=== PATIENT | male | born 1950 | race Caucasian/White ===

== ENCOUNTER 2018-08-01 13:51 | Emergency (ER) | payer BC, MEDICARE ==
[2018-08-01] MEDS ORDERED: IPRATROPIUM/ALBUTEROL 0.5-2.5 MG/3 ML AMPUL NEB ONE (14:12)
--- NOTE | 2018-08-01 14:13 | ER Document Report ---
ED Medical Screen (RME) - General Chief Complaint: Breathing Difficulty Stated Complaint: TROUBLE BREATHING, SHOULDER/NECK PAIN Time Seen by Provider: 08/01/18 14:11 TRAVEL OUTSIDE OF THE [place] IN LAST 30 DAYS: No - HPI Notes: 08/01/18 14:12 Patient is a 68-year-old male that presents to the emergency department for chief complaint of shortness of breath. Patient has had increased dyspnea for the last week. He reports a nonproductive cough now but states it was productive a few days ago. He denies history of COPD or lung disease. He does state that he has a harder time breathing when he is lying flat and sitting up. He reports an aching in his shoulders and neck that coincides with the shortness of breath.. ROS: GENERAL: Denies fever of chills CV: Denies chest pain PHYSICAL EXAMINATION: GENERAL: Well-appearing, well-nourished and in no acute distress. HEAD: Atraumatic, normocephalic. EYES: Pupils equal round extraocular movements intact, conjunctiva are normal. ENT: Nares patent NECK: Normal range of motion LUNGS: Diffuse wheezing, no respiratory distress Musculoskeletal: Normal range of motion NEUROLOGICAL: Normal speech, normal gait. PSYCH: Normal mood, normal affect. MDM: Patient seen and examined for rapid initial assessment. Vital signs reviewed. A comprehensive ED assessment and evaluation of the patient, analysis of test results and completion of the medical decision making process will be conducted by additional ED providers. - Related Data Allergies/Adverse Reactions: No Known Allergies Allergy (Unverified 08/01/18 13:51) Physical Exam - Vital signs Vitals: Temp Pulse Resp BP Pulse Ox 97.5 F 102 H 27 H 177/110 H 92 08/01/18 13:56 08/01/18 13:56 08/01/18 13:56 08/01/18 13:56 08/01/18 13:56 Course - Vital Signs Vital signs: Temp Pulse Resp BP Pulse Ox 97.5 F 102 H 27 H 177/110 H 92 08/01/18 13:56 08/01/18 13:56 08/01/18 13:56 08/01/18 13:56 08/01/18 13:56 Doctor's Discharge - Discharge Referrals: IRENE DAVENPORT MD [Primary Care Provider] - Follow up as needed
[2018-08-01] MEDS ORDERED: LORAZEPAM 1 MG TABLET PO ONE (14:51)
--- NOTE | 2018-08-01 15:01 | ER Document Report ---
ED General - General Chief Complaint: Breathing Difficulty Stated Complaint: TROUBLE BREATHING, SHOULDER/NECK PAIN Time Seen by Provider: 08/01/18 14:11 TRAVEL OUTSIDE OF THE [place] IN LAST 30 DAYS: No - HPI Notes: Patient is a 68-year-old male that presents to the emergency department for chief complaint of shortness of breath. Patient has had increased dyspnea for the last week. He reports a nonproductive cough now but states it was productive a few days ago. He denies history of COPD or lung disease. He does state that he has a harder time breathing when he is lying flat and sitting up. He reports an aching in his shoulders and neck that coincides with the shortness of breath. He does currently have some aching in his shoulders. He denies any chest pain, palpitations, syncope, nausea, vomiting and diaphoresis. He denies history of stress test or cardiac catheterization in the past. Past Medical History: Negative Past Surgical History: Negative Social History: Denies drugs alcohol and tobacco Family History: Reviewed and noncontributory for presenting illness Allergies: Reviewed, see documented allergy list. REVIEW OF SYSTEMS: CONSTITUTIONAL : No fever No chills No diaphoresis No recent illness EENT: No vision changes No congestion No sore throat CARDIOVASCULAR: No chest pain No palpitations RESPIRATORY: shortness of breath cough difficulty breathing GASTROINTESTINAL: No abdominal pain No nausea No vomiting No diarrhea GENITOURINARY: No dysuria No hematuria No difficulty urinating MUSCULOSKELETAL: Neck pain Upper back pain No leg pain No arm pain SKIN: No rashes No lesions LYMPHATIC: No swollen, enlarged glands. NEUROLOGICAL: No lightheadedness No headache No weakness No paresthesias PSYCHIATRIC: No anxiety No depression PHYSICAL EXAMINATION: Vital signs reviewed, nursing noted reviewed. GENERAL: Well-appearing, well-nourished and in no acute distress. HEAD: Atraumatic, normocephalic. EYES: Eyes appear normal, extraocular movements intact, sclera anicteric, conjunctiva are normal. ENT: nares patent, oropharynx clear without exudates. Moist mucous membranes. NECK: Normal range of motion, supple without lymphadenopathy LUNGS: Bilateral end expiratory wheezing. No accessory muscle use HEART: Regular rate and rhythm without murmurs ABDOMEN: Soft, nontender, normoactive bowel sounds. No rebound, guarding, or rigidity. No masses appreciated. EXTREMITIES: Nontender, good range of motion, no pitting or edema. NEUROLOGICAL: No focal neurological deficits. Moves all extremities spontaneously Motor and sensory grossly intact on exam. PSYCH: Normal mood, normal affect. SKIN: Warm, Dry, normal turgor, no rashes or lesions noted on exposed skin - Related Data Allergies/Adverse Reactions: No Known Allergies Allergy (Unverified 08/01/18 13:51) Past Medical History - Social History Smoking Status: Never Smoker Frequency of alcohol use: Occasional Drug Abuse: None Family History: Reviewed & Not Pertinent Patient has suicidal ideation: No Patient has homicidal ideation: No Renal/ Medical History: Denies: Hx Peritoneal Dialysis Past Surgical History: Reports: Hx Cholecystectomy Review of Systems - Review of Systems Notes: Dictated Physical Exam - Vital signs Vitals: Temp Pulse Resp BP Pulse Ox 97.5 F 102 H 27 H 177/110 H 92 08/01/18 13:56 08/01/18 13:56 08/01/18 13:56 08/01/18 13:56 08/01/18 13:56 - Notes Notes: Dictated Course - Re-evaluation Re-evalutation: 08/01/18 14:59 Vitals reviewed. Nursing notes reviewed. Patient presented in no distress with bilateral wheezing. He was ordered DuoNeb for his shortness of breath and wheezing. EKG revealed a STEMI. Patient was ordered aspirin, Plavix, nitro, heparin, and TNKase. Patient will be transferred to [facility] for cardiac catheterization. Accepting physician Dr. Powell, cardiology. Patient and family in agreement with this plan. He is stable at time of transfer. 08/01/18 16:05 Case was discussed with Dr. Powell who reviewed EKGs and agrees with transfer to cardiac catheterization. Repeat EKG showed worsening ST elevation in lead III and new tachycardia however patient is very anxious currently about being in the helicopter. Troponin is still pending. Patient was stable at time of transfer Laboratory 08/01/18 08/01/18 08/01/18 14:45 14:45 14:45 WBC 12.0 H RBC 5.05 Hgb 15.2 Hct 44.8 MCV 89 MCH 30.2 MCHC 34.0 RDW 13.4 Plt Count 304 Seg Neutrophils % 84.2 H Lymphocytes % 7.6 L Monocytes % 6.0 Eosinophils % 1.4 Basophils % 0.8 Absolute Neutrophils 10.1 H Absolute Lymphocytes 0.9 Absolute Monocytes 0.7 Absolute Eosinophils 0.2 Absolute Basophils 0.1 Sodium Cancelled Potassium Cancelled Chloride Cancelled Carbon Dioxide Cancelled Anion Gap Cancelled BUN Cancelled Creatinine Cancelled Est GFR ( Amer) Cancelled Est GFR (Non-Af Amer) Cancelled Glucose Cancelled Calcium Cancelled Troponin I Cancelled Chest X-Ray 08/01/18 14:11 IMPRESSION: Borderline cardiomegaly. Cannot exclude mild pulmonary edema. Minimal pleural effusions. - Vital Signs Vital signs: Temp Pulse Resp BP Pulse Ox 97.5 F 102 H 25 H 154/100 H 94 08/01/18 13:56 08/01/18 13:56 08/01/18 15:35 08/01/18 15:35 08/01/18 15:35 - Laboratory Result Diagrams: 08/01/18 14:45 08/01/18 14:45 Laboratory results interpreted by me: 08/01/18 14:45 WBC 12.0 H Seg Neutrophils % 84.2 H Lymphocytes % 7.6 L Absolute Neutrophils 10.1 H - EKG Interpretation by Me Additional EKG results interpreted by me: 08/01/18 14:58 Interpreted by myself Normal sinus rhythm, rate 83, STEMI with ST elevation in aVR and V1, ST depression I, V4- V5 08/01/18 16:06 Interpreted by myself Repeat EKG shows increased ST elevation in lead III, persistent ST elevation in aVR and V1, new tachycardia, sinus rhythm, rate 149 Critical Care Note - Critical Care Note Total time excluding time spent on procedures (mins): 35 Comments: STEMI, potential for cardiovascular decompensation. Discussions with family and specialists. Repeat re-evaluations. Discharge - Discharge Clinical Impression: STEMI (ST elevation myocardial infarction) Qualifiers: Involved coronary artery: other coronary artery Qualified Code(s): I21.29 - ST elevation (STEMI) myocardial infarction involving other sites Condition: Stable Disposition: [facility]
[2018-08-01 15:09] LABS: ABSOLUTE BASOPHILS # (AUTO) 0.1 10^3/uL (0.0-0.2); ABSOLUTE EOSINOPHILS # (AUTO) 0.2 10^3/uL (0.0-0.6); ABSOLUTE LYMPHOCYTES (AUTO) 0.9 10^3/uL (0.5-4.7); ABSOLUTE MONOCYTES (AUTO) 0.7 10^3/uL (0.1-1.4); ABSOLUTE NEUT (AUTO) 10.1 10^3/uL (1.7-8.2); BASOPHILS % (AUTO) 0.8 % (0-2); EOSINOPHILS % (AUTO) 1.4 % (0-6); HEMATOCRIT 44.8 % (37.9-51.0); HEMOGLOBIN 15.2 g/dL (13.5-17.0); LYMPHOCYTES % (AUTO) 7.6 % (13-45); MEAN CORPUSCULAR HEMOGLOBIN 30.2 pg (27.0-33.4); MEAN CORPUSCULAR VOLUME 89 fl (80-97); PLATELET COUNT 304 10^3/uL (150-450); RED BLOOD COUNT 5.05 10^6/uL (4.35-5.55); RED CELL DISTRIBUTION WIDTH 13.4 % (11.5-14.0); SEGMENTED NEUTROPHILS % (AUTO) 84.2 % (42-78); TOTAL CELLS COUNTED % (AUTO) 100 %
--- NOTE | 2018-08-01 15:19 | RADIOLOGY REPORT (SQ) ---
EXAM DESCRIPTION: CHEST SINGLE VIEW COMPLETED DATE/TIME: 08/01/2018 3:07 pm REASON FOR STUDY: sob COMPARISON: None. EXAM PARAMETERS: NUMBER OF VIEWS: One view. TECHNIQUE: Single frontal radiographic view of the chest acquired. RADIATION DOSE: NA LIMITATIONS: None. FINDINGS: LUNGS AND PLEURA: Minimal pleural effusion. Pulmonary vascular congestion. Cannot exclud e mild pulmonary edema. MEDIASTINUM AND HILAR STRUCTURES: No masses. Contour normal. HEART AND VASCULAR STRUCTURES: Borderline heart size. BONES: No acute findings. HARDWARE: None in the chest. OTHER: No other significant finding. IMPRESSION: Borderline cardiomegaly. Cannot exclude mild pulmonary edema. Minimal pleural effusion s. TECHNICAL DOCUMENTATION: JOB ID: [id number] [employer]- All Rights Reserved Reading location - IP/workstation name: [email or web address]
[2018-08-01] MEDS ORDERED: ENOXAPARIN SODIUM INJ 100 MG/1 ML DISP.SYRIN SUBCUT ONE (15:27)
[2018-08-01 15:46] VITALS: BP 176/105
--- NOTE | 2018-08-01 15:46 | EKG REPORT ---
SEVERITY:- ABNORMAL ECG - ATRIAL FIBRILLATION INFERIOR INFARCT, AGE INDETERMINATE REPOLARIZATION ABNORMALITY, PROB RATE RELATED LATERAL LEADS ARE ALSO INVOLVED BORDERLINE PROLONGED QT INTERVAL : Confirmed by: Nadine Babb MD 01-Aug-2018 15:44:54
--- NOTE | 2018-08-01 15:46 | EKG REPORT ---
SEVERITY:- ABNORMAL ECG - SINUS RHYTHM REPOL ABNRM SUGGESTS ISCHEMIA, DIFFUSE LEADS BORDERLINE PROLONGED QT INTERVAL : Confirmed by: Nadine Babb MD 01-Aug-2018 15:45:10
[2018-08-01 16:05] LABS: ANION GAP 12 (5-19); BLOOD UREA NITROGEN 14 mg/dL (7-20); CALCIUM 9.8 mg/dL (8.4-10.2); CARBON DIOXIDE 26 mmol/L (22-30); CHLORIDE 104 mmol/L (98-107); GLUCOSE 160 mg/dL (75-110); SODIUM 141.5 mmol/L (137-145)
[2018-08-01] MEDS ORDERED: ASPIRIN 81 MG TABLET, CHEWABLE PO ONE (17:00)
[2018-08-01] MEDS ORDERED: NITROGLYCERIN 0.4 MG/TAB 25 TAB/BOTTLE SL ONE (17:00)
[2018-08-01] MEDS ORDERED: TENECTEPLASE INJ 50 MG KIT IV ONE (17:00)
[2018-08-01] MEDS ORDERED: CLOPIDOGREL BISULFATE 300 MG TABLET PO ONE (17:00)
== END 2018-08-01 15:38 | disposition short-term general hospital (02) ==
LOC: ER 13:51
DX: I21.3 ST elevation (STEMI) myocardial infarction of unspecified site (principal); J90 Pleural effusion, not elsewhere classified; R06.02 Shortness of breath; R05 Cough; M25.519 Pain in unspecified shoulder; M54.2 Cervicalgia; M54.89 Other dorsalgia; R06.2 Wheezing
CPT/HCPCS: 93005; 94640; 99291; 96372; 96374; 36415; 85025; 80048; 71045; 93010; J3101; J3490; J1650; J7620